=== PATIENT | female | born 1945 | race Caucasian/White ===

== ENCOUNTER 2018-06-14 19:09 | Emergency (ER) | payer OTHER ==
[~2018-06-14] VITALS: Ht 154.9 cm; Wt 56.2 kg
[2018-06-14] MEDS ORDERED: NORVASC2.5 M1 PO (19:54)
[2018-06-14] MEDS ORDERED: LITHIUM CARBON150 MG PO (19:54)
[2018-06-14] MEDS ORDERED: CLONAZEPAM2 MG PO (19:54)
[2018-06-14] MEDS ORDERED: TRAZODONE PO (19:55)
[2018-06-14] MEDS ORDERED: SEROQUEL XR150 MG PO (19:56)
== END 2018-06-15 16:40 | disposition home or self-care (01) ==
LOC: ER 19:09 → EDSEX 19:10 → ER 06-15 16:40
DX: R11.11 Vomiting without nausea (principal); K59.09 Other constipation; R14.3 Flatulence; E86.0 Dehydration